=== PATIENT | female | born 1980 | race Caucasian/White ===

== ENCOUNTER 2018-01-30 12:35 | Outpatient (CLI) | payer OTHER | END 2018-01-30 13:46 | disposition home or self-care (01) | LOC: NST 12:35 | DX: O34.32 Maternal care for cervical incompetence, second trimester (principal); Z34.82 Encounter for supervision of other normal pregnancy, second trimester ==

== ENCOUNTER 2018-04-13 15:45 | Inpatient (IN) | payer OTHER ==
[~2018-04-13] VITALS: Ht 162.6 cm; Wt 108.9 kg
[2018-04-25] MEDS ORDERED: PRENATAL TABLE1 EAC3 PO (14:19)
== END 2018-04-27 10:40 | disposition home or self-care (01) | DRG 775 ==
LOC: OB/GYN → LDR 04-25 08:51 → OB/GYN 04-25 19:30
PROC: 10E0XZZ Delivery of Products of Conception, External Approach (ICD-10-PCS; principal; 2018-04-25)
PROC: 4A1HXCZ Monitoring of Products of Conception, Cardiac Rate, External Approach (ICD-10-PCS; 2018-04-25)
DX: O80 Encounter for full-term uncomplicated delivery (principal); Z3A.38 38 weeks gestation of pregnancy; Z37.0 Single live birth; Z22.330 Carrier of Group B streptococcus

== ENCOUNTER → 2018-04-24 | Outpatient (CLI) | payer OTHER ==
[~2018-04-24] MED LIST: PRENATAL TABLE1 EAC3 PO
== END | disposition home or self-care (01) ==
LOC: NST 12:21
DX: Z34.83 Encounter for supervision of other normal pregnancy, third trimester (principal)

== ENCOUNTER 2019-03-13 07:15 | Day surgery (SDC) | payer OTHER | END 2019-03-13 16:15 | disposition home or self-care (01) | LOC: CIR.AMB 07:15 | DX: O34.31 Maternal care for cervical incompetence, first trimester (principal); Z3A.13 13 weeks gestation of pregnancy ==

== ENCOUNTER → 2019-09-08 | Outpatient (CLI) | payer OTHER ==
[~2019-09-08] MED LIST changes: +OBSTETRIX ONE1 EACH PO
== END | disposition home or self-care (01) ==
LOC: NST 18:14
DX: Z34.83 Encounter for supervision of other normal pregnancy, third trimester (principal)

== ENCOUNTER 2019-09-09 08:38 | Inpatient (IN) | payer OTHER ==
[~2019-09-09] VITALS: Ht 165.1 cm; Wt 104.3 kg
[~2019-09-09 08:38] MED LIST changes: -OBSTETRIX ONE1 EACH PO
[2019-09-10] MEDS ORDERED: OBSTETRIX ONE1 EACH PO (08:25)
== END 2019-09-11 11:55 | disposition home or self-care (01) | DRG 807 ==
LOC: LDR 08:38 → OB/GYN 11:45
PROVIDERS: ADMIT Obstetrics & Gynecology
PROC: 10E0XZZ Delivery of Products of Conception, External Approach (ICD-10-PCS; principal; 2019-09-09)
PROC: 4A1HXCZ Monitoring of Products of Conception, Cardiac Rate, External Approach (ICD-10-PCS; 2019-09-09)
DX: O80 Encounter for full-term uncomplicated delivery (principal); Z37.0 Single live birth; Z3A.38 38 weeks gestation of pregnancy